=== PATIENT | female | born 1995 | race African-American/Black ===

== ENCOUNTER 2019-05-06 08:50 | Observation (INO) ==
[2019-05-06 09:43] LABS: Basophils # 0.1 K/mcL (0.0-0.2); Basophils % 0.9 %; Eosinophils # 0.1 K/mcL (0.0-0.6); Eosinophils % 1.2 %; Hematocrit 43.6 % (35.3-44.9); Hemoglobin 14.6 g/dL (11.5-15.4); Immature Granulocytes % 0.9 % (0-4); Immature Platelets 0.7 % (1.1-6.1); Lymphocytes # 2.1 K/mcL (0.6-4.6); Lymphocytes % 22.5 %; Mean Corpuscular HGB Conc 33.5 g/dL (31.6-35.5); Mean Corpuscular Hemoglobin 27.8 pg (28.0-33.3); Mean Corpuscular Volume 82.9 fL (83.0-100.0); Mean Platelet Volume 8.3 fL (9.4-12.4); Monocytes # 0.4 K/mcL (0.0-1.3); Monocytes % 4.2 %; Neutrophils # 6.6 K/mcL (1.6-8.9); Platelet Count 317 K/mcL (140-400); Red Blood Count 5.26 M/mcL (3.82-4.97); Red Cell Distribution Width 14.3 % (11.5-14.5); Segmented Neutrophils % 70.3 %; White Blood Count 9.4 K/mcL (4.3-11.1)
[2019-05-06 09:54] LABS: Acetaminophen < 10 mcg/mL (10-20); Alanine Aminotransferase 31 Units/L (7-52); Albumin 4.7 g/dL (3.5-5.7); Albumin/Globulin Ratio 1.4 (1.1-2.2); Alkaline Phosphatase 62 Units/L (34-104); Aspartate Amino Transferase 23 Units/L (13-39); BUN/Creatinine Ratio 22 (6-26); Bilirubin,Direct 0.1 mg/dL (0.0-0.2); Bilirubin,Indirect 0.2 mg/dL (0.0-1.0); Bilirubin,Total 0.3 mg/dL (0.3-1.0); Blood Urea Nitrogen 17 mg/dL (6-20); Calcium 9.8 mg/dL (8.6-10.3); Carbon Dioxide 19 mEq/L (23-29); Chloride 107 mEq/L (98-107); Chol/HDL Ratio 3.5 (0-4.9); Cholesterol 178 mg/dL (< 200); Ethanol < 10 mg/dL (Less than 10); Globulin 3.3 g/dL (2.4-3.5); Glucose 100 mg/dL (70-105); HDL Cholesterol 51 mg/dL (40-59); LDL Cholesterol,Calculated 114 mg/dL (0-99); Osmolality,Calculated 288 (280-300); Potassium 3.8 mEq/L (3.5-5.1); Salicylate < 2.5 mg/dL (15.0-30.0); Sodium 138 mEq/L (136-145); Triglycerides 67 mg/dL (< 150); eGFR For African Americans > 60 (> 60); eGFR For Non-African Americans > 60 (> 60)
[2019-05-06 10:07] LABS: Bilirubin,Urine Negative (Negative); Blood,Urine Negative (Negative); Clarity,Urine Clear (Clear); Color,Urine Yellow (Yellow); Glucose,Urine (UA) Normal (Normal); Ketones,Urine Negative (Negative); Leukocyte Esterase,Urine Negative (Negative); Nitrite,Urine Negative (Negative); Protein,Urine Negative (Neg-Trace); Specific Gravity,Urine 1.025 (1.010-1.025); Urobilinogen,Urine Normal (Normal)
[2019-05-06 10:27] LABS: Amphetamine Screen,Urine Negative ng/mL (Cutoff=1000); Barbiturate Screen,Urine Negative ng/mL (Cutoff=200); Benzodiazepines Screen,Urine Negative ng/mL (Cutoff=200); Cannabinoid Screen,Urine Negative ng/mL (Cutoff = 50); Cocaine Screen,Urine Negative ng/mL (Cutoff= 300); Opiate Screen,Urine Negative ng/mL (Cutoff=300); Phencyclidine Screen,Urine Negative ng/mL (Cutoff=25)
[2019-05-06 10:34] LABS: Estimated Average Glucose 128 mg/dl
[2019-05-06] MEDS ORDERED: Acetaminophen 325 MG TABLET PO PRN (14:21)
[2019-05-06] MEDS ORDERED: MOM Conc 10 ML UD.LIQ PO PRN (14:21)
[2019-05-06] MEDS ORDERED: *HR* LORazepam 1 MG TABLET PO PRN (14:21)
[2019-05-06] MEDS ORDERED: Mag Hydrox/Al Hydrox/Simeth 30 ML UDC PO PRN (14:21)
[2019-05-06] MEDS ORDERED: Haloperidol Lactate 5 MG/ML VIAL IM PRN (14:21)
[2019-05-06] MEDS ORDERED: hydrOXYzine pamoate 25 MG CAPSULE PO PRN (14:21)
[2019-05-06] MEDS ORDERED: *HR* LORazepam 2 MG/ML VIAL IM PRN (14:21)
[2019-05-06] MEDS ORDERED: traZODone 50 MG TABLET PO PRN ×2 (14:21→19:13)
[2019-05-07 07:58] VITALS: BP 120/77
[2019-05-07] MEDS ORDERED: ARIPiprazole 10 MG TABLET PO SCH (09:00)
[2019-05-07] MEDS ORDERED: Cholecalciferol (D-3) 1,000 UNIT (25MCG) TABLET PO SCH (09:00)
[2019-05-07] MEDS ORDERED: MEDROXYPROGESTERONE ACETATE 150 MG IM SCH (09:15)
[2019-05-07] MEDS ORDERED: ARIPIPRAZOLE LAUROXIL 1064 MG IM SCH (09:15)
[2019-05-07] MEDS ORDERED: FLU Vac QV 19-20 (6Month+)/PF 0.5 ML SYRINGE IM ONE (09:38)
== END 2019-05-07 11:35 | disposition home or self-care (01) ==
LOC: 1ANU 08:50 → EMEROOARM 08:50 → 1ANU 14:20
PROVIDERS: ADMIT Psychiatry & Neurology Psychiatry; ATTEND Psychiatry & Neurology Psychiatry

== ENCOUNTER 2020-04-18 15:33 | Inpatient (IN) ==
[2020-04-18 15:53] LABS: Bilirubin,Urine Small (Negative); Blood,Urine Negative (Negative); Clarity,Urine Turbid (Clear); Color,Urine Yellow (Yellow); Glucose,Urine (UA) Normal (Normal); Ketones,Urine Trace mg/dL (Negative); Leukocyte Esterase,Urine Negative (Negative); Nitrite,Urine Positive (Negative); PH,Urine 5.5 pH Units (5.0-8.0); Protein,Urine 30 mg/dL (Neg-Trace); Specific Gravity,Urine >= 1.030 (1.010-1.025); Urobilinogen,Urine Normal (Normal)
[2020-04-18 16:02] LABS: Amphetamine Screen,Urine Negative ng/mL (Cutoff=1000); Barbiturate Screen,Urine Negative ng/mL (Cutoff=200); Benzodiazepines Screen,Urine Negative ng/mL (Cutoff=200); Cannabinoid Screen,Urine Negative ng/mL (Cutoff = 50); Cocaine Screen,Urine Negative ng/mL (Cutoff= 300); Opiate Screen,Urine Negative ng/mL (Cutoff=300); Phencyclidine Screen,Urine Negative ng/mL (Cutoff=25)
[2020-04-18 16:19] LABS: Bacteria,Urine Few per hpf (None-Few); RBC,Urine 0-3 per hpf (0-3); Squamous Epithelial Cell,Urine Moderate per hpf (None-Few); WBC,Urine 0-3 per hpf (0-3)
[2020-04-18 16:24] LABS: Basophils # 0.1 K/mcL (0.0-0.2); Basophils % 0.4 %; Eosinophils # 0.1 K/mcL (0.0-0.6); Eosinophils % 0.6 %; Hematocrit 44.6 % (35.3-44.9); Hemoglobin 14.2 g/dL (11.5-15.4); Immature Granulocytes % 0.7 % (0-4); Lymphocytes # 2.7 K/mcL (0.6-4.6); Lymphocytes % 22.7 %; Mean Corpuscular HGB Conc 31.8 g/dL (31.6-35.5); Mean Corpuscular Hemoglobin 27.3 pg (28.0-33.3); Mean Corpuscular Volume 85.6 fL (83.0-100.0); Monocytes # 0.8 K/mcL (0.0-1.3); Monocytes % 6.5 %; Neutrophils # 8.1 K/mcL (1.6-8.9); Platelet Count 403 K/mcL (140-400); Red Blood Count 5.21 M/mcL (3.82-4.97); Red Cell Distribution Width 15.1 % (11.5-14.5); Segmented Neutrophils % 69.1 %; White Blood Count 11.7 K/mcL (4.3-11.1)
[2020-04-18 16:38] LABS: Acetaminophen < 10 mcg/mL (10-20); BUN/Creatinine Ratio 9 (6-26); Blood Urea Nitrogen 8 mg/dL (6-20); Calcium 10.1 mg/dL (8.6-10.3); Carbon Dioxide 25 mEq/L (23-29); Chloride 105 mEq/L (98-107); Chol/HDL Ratio 3.9 (0-4.9); Cholesterol 177 mg/dL (< 200); Ethanol < 10 mg/dL (Less than 10); Glucose 81 mg/dL (70-105); HDL Cholesterol 45 mg/dL (40-59); LDL Cholesterol,Calculated 115 mg/dL (< 100); Osmolality,Calculated 283 (280-300); Potassium 3.8 mEq/L (3.5-5.1); Salicylate < 2.5 mg/dL (15.0-30.0); Sodium 138 mEq/L (136-145); Triglycerides 86 mg/dL (< 150); eGFR For African Americans > 60 (> 60); eGFR For Non-African Americans > 60 (> 60)
[2020-04-18] MEDS ORDERED: Nitrofurantoin (BID) 100 MG CAPSULE PO STA (17:11)
[2020-04-18 17:12] LABS: Estimated Average Glucose 120 mg/dl
[2020-04-18] MEDS ORDERED: Haloperidol Lactate 5 MG/ML VIAL IM PRN (18:38)
[2020-04-18] MEDS ORDERED: MOM Conc 10 ML UD.LIQ PO PRN (18:38)
[2020-04-18] MEDS ORDERED: Acetaminophen 325 MG TABLET PO PRN (18:38)
[2020-04-18] MEDS ORDERED: hydrOXYzine pamoate 25 MG CAPSULE PO PRN (18:38)
[2020-04-18] MEDS ORDERED: Mag Hydrox/Al Hydrox/Simeth 30 ML UDC PO PRN (18:38)
[2020-04-18] MEDS ORDERED: *HR* LORazepam 1 MG TABLET PO PRN (18:38)
[2020-04-18] MEDS ORDERED: *HR* LORazepam 2 MG/ML VIAL IM PRN (18:38)
[2020-04-18] MEDS ORDERED: haloperidoL 5 MG TABLET PO PRN (18:38)
[2020-04-18] MEDS: QUEtiapine Fumarate 25 MG TABLET PO PRN (22:02)
[2020-04-18] MEDS: ARIPiprazole 10 MG TABLET PO SCH (22:02)
[2020-04-19] MEDS: ARIPiprazole 10 MG TABLET PO SCH (08:38)
[2020-04-19] MEDS: *HR* Metformin 500 MG TABLET PO SCH (08:39)
[2020-04-19] MEDS: QUEtiapine Fumarate 25 MG TABLET PO PRN (21:36)
[2020-04-20] MEDS: *HR* Metformin 500 MG TABLET PO SCH (09:55)
[2020-04-20] MEDS: ARIPiprazole 10 MG TABLET PO SCH (10:16)
[2020-04-20] MEDS ORDERED: Patient Taking Own Medication 1 EACH PO SCH (10:30)
[2020-04-20] MEDS ORDERED: ARISTADA PO SCH (11:00)
[2020-04-20] MEDS ORDERED: ARISTADA IM SCH (11:00)
[2020-04-21] MEDS: *HR* Metformin 500 MG TABLET PO SCH (09:13)
[2020-04-21] MEDS: ARIPiprazole 10 MG TABLET PO SCH (09:14)
[2020-04-22] MEDS: ARIPiprazole 10 MG TABLET PO SCH (08:44)
[2020-04-22] MEDS: *HR* Metformin 500 MG TABLET PO SCH (08:44)
[2020-04-22 09:14] VITALS: BP 115/80
== END 2020-04-22 09:00 | disposition home or self-care (01) | DRG 885 ==
LOC: EMEROOARM 15:33 → 1ANU 18:32
PROVIDERS: ADMIT Psychiatry & Neurology Forensic Psychiatry; ATTEND Psychiatry & Neurology Forensic Psychiatry

== ENCOUNTER 2021-01-24 20:20 | Observation (INO) ==
[2021-01-24 21:39] LABS: Bilirubin,Urine Negative (Negative); Blood,Urine Negative (Negative); Clarity,Urine Clear (Clear); Color,Urine Colorless (Yellow); Glucose,Urine (UA) Normal (Normal); Ketones,Urine Negative (Negative); Leukocyte Esterase,Urine Negative (Negative); Nitrite,Urine Negative (Negative); PH,Urine 6.5 pH Units (5.0-8.0); Protein,Urine Negative (Neg-Trace); Specific Gravity,Urine 1.015 (1.010-1.025); Urobilinogen,Urine Normal (Normal)
[2021-01-24 21:47] LABS: Amphetamine Screen,Urine Negative ng/mL (Cutoff=1000); Barbiturate Screen,Urine Negative ng/mL (Cutoff=200); Benzodiazepines Screen,Urine Negative ng/mL (Cutoff=200); Cannabinoid Screen,Urine Negative ng/mL (Cutoff = 50); Cocaine Screen,Urine Negative ng/mL (Cutoff= 300); Opiate Screen,Urine Negative ng/mL (Cutoff=300); Phencyclidine Screen,Urine Negative ng/mL (Cutoff=25)
[2021-01-24 22:02] LABS: Basophils # 0.1 K/mcL (0.0-0.2); Basophils % 0.4 %; Eosinophils # 0.2 K/mcL (0.0-0.6); Eosinophils % 1.4 %; Hematocrit 41.5 % (35.3-44.9); Hemoglobin 13.3 g/dL (11.5-15.4); Immature Granulocytes % 0.5 % (0-4); Lymphocytes # 3.4 K/mcL (0.6-4.6); Lymphocytes % 26.1 %; Mean Corpuscular Volume 84.2 fL (83.0-100.0); Mean Platelet Volume 8.1 fL (9.4-12.4); Monocytes # 0.9 K/mcL (0.0-1.3); Monocytes % 6.6 %; Neutrophils # 8.5 K/mcL (1.6-8.9); Platelet Count 374 K/mcL (140-400); Red Blood Count 4.93 M/mcL (3.82-4.97); Red Cell Distribution Width 14.1 % (11.5-14.5); White Blood Count 13.1 K/mcL (4.3-11.1)
[2021-01-24 22:12] LABS: Acetaminophen < 10 mcg/mL (10-20); Alanine Aminotransferase 23 Units/L (7-52); Albumin 4.3 g/dL (3.5-5.7); Albumin/Globulin Ratio 1.3 (1.1-2.2); Alkaline Phosphatase 75 Units/L (34-104); Aspartate Amino Transferase 19 Units/L (13-39); BUN/Creatinine Ratio 16 (6-26); Bilirubin,Indirect 0.2 mg/dL (0.0-1.0); Bilirubin,Total 0.2 mg/dL (0.3-1.0); Blood Urea Nitrogen 12 mg/dL (6-20); Calcium 9.9 mg/dL (8.6-10.3); Carbon Dioxide 23 mEq/L (23-29); Chloride 104 mEq/L (98-107); Ethanol < 10 mg/dL (Less than 10); Globulin 3.4 g/dL (2.4-3.5); Glucose 85 mg/dL (70-105); Osmolality,Calculated 279 (280-300); Potassium 3.9 mEq/L (3.5-5.1); Salicylate < 2.5 mg/dL (15.0-30.0); Sodium 135 mEq/L (136-145); Total Protein 7.7 g/dL (6.4-8.9); eGFR For African Americans > 60 (> 60); eGFR For Non-African Americans > 60 (> 60)
[2021-01-25 01:40] LABS: Adenovirus Not Detected (Not Detect); Bordetella Pertussis Not Detected (Not Detect); Chlamydophila pneumoniae Not Detected (Not Detect); Coronavirus 229E Not Detected (Not Detect); Coronavirus HKU1 Not Detected (Not Detect); Coronavirus NL63 Not Detected (Not Detect); Coronavirus OC43 Not Detected (Not Detect); Human Metapneumovirus Not Detected (Not Detect); Human Rhinovirus/Enterovirus Not Detected (Not Detect); Influenza A Subtype 2009 H1 Not Detected (Not Detect); Influenza B Not Detected (Not Detect); Mycoplasma pneumoniae Not Detected (Not Detect); Parainfluenza Virus 1 Not Detected (Not Detect); Parainfluenza Virus 2 Not Detected (Not Detect); Parainfluenza Virus 3 Not Detected (Not Detect); Parainfluenza Virus 4 Not Detected (Not Detect); Respiratory Syncytial Virus Not Detected (Not Detect); SARS-CoV-2 Not Detected (Not Detect)
[2021-01-25] MEDS ORDERED: hydrOXYzine pamoate 25 MG CAPSULE PO PRN ×3 (01:52→13:21)
[2021-01-25] MEDS ORDERED: QUEtiapine Fumarate 25 MG TABLET PO PRN (01:52)
[2021-01-25] MEDS ORDERED: Haloperidol Lactate 5 MG/ML VIAL IM PRN (01:52)
[2021-01-25] MEDS ORDERED: Acetaminophen 325 MG TABLET PO PRN (01:52)
[2021-01-25] MEDS ORDERED: *HR* LORazepam 1 MG TABLET PO PRN (01:52)
[2021-01-25] MEDS ORDERED: haloperidoL 5 MG TABLET PO PRN (01:52)
[2021-01-25] MEDS ORDERED: *HR* LORazepam 2 MG/ML VIAL IM PRN (01:52)
[2021-01-25 09:03] VITALS: BP 97/66; PULSE 104; TEMP 98.1; O2SAT 98
[2021-01-25] MEDS ORDERED: MOM Conc 10 ML UD.LIQ PO PRN (11:25)
[2021-01-25] MEDS ORDERED: traZODone 50 MG TABLET PO PRN (11:25)
[2021-01-25] MEDS ORDERED: Mag Hydrox/Al Hydrox/Simeth 30 ML UDC PO PRN (11:25)
[2021-01-25] MEDS ORDERED: ARIPiprazole 10 MG TABLET PO SCH (11:30)
[2021-01-25] MEDS ORDERED: FluPHENAZine 10 MG TABLET PO SCH (21:00)
[2021-01-25] MEDS ORDERED: QUEtiapine Fumarate 25 MG TABLET PO SCH (21:00)
== END 2021-01-25 18:30 | disposition home or self-care (01) ==
LOC: EMEROOARM 20:20 → 1ANU 01-25 01:46 → INTOOBSV 01-25 01:46 → 1ANU 01-25 02:29 → UNDODISOB 01-25 18:30
PROVIDERS: ADMIT Psychiatry & Neurology Psychiatry; ATTEND Psychiatry & Neurology Psychiatry

== ENCOUNTER 2021-12-08 07:22 | Inpatient (IN) ==
[2021-12-08 08:16] LABS: Basophils # 0.1 K/mcL (0.0-0.2); Basophils % 0.5 %; Eosinophils # 0.2 K/mcL (0.0-0.6); Eosinophils % 2.1 %; Hematocrit 40.8 % (35.3-44.9); Hemoglobin 13.5 g/dL (11.5-15.4); Immature Granulocytes % 0.3 % (0-4); Lymphocytes # 2.9 K/mcL (0.6-4.6); Lymphocytes % 27.1 %; Mean Corpuscular HGB Conc 33.1 g/dL (31.6-35.5); Mean Corpuscular Hemoglobin 27.4 pg (28.0-33.3); Mean Corpuscular Volume 82.9 fL (83.0-100.0); Mean Platelet Volume 8.3 fL (9.4-12.4); Monocytes # 0.7 K/mcL (0.0-1.3); Monocytes % 6.2 %; Neutrophils # 6.7 K/mcL (1.6-8.9); Platelet Count 382 K/mcL (140-400); Red Blood Count 4.92 M/mcL (3.82-4.97); Red Cell Distribution Width 15.8 % (11.5-14.5); Segmented Neutrophils % 63.8 %; White Blood Count 10.5 K/mcL (4.3-11.1)
[2021-12-08 08:21] LABS: Acetaminophen < 10 mcg/mL (10-20); Alanine Aminotransferase 28 Units/L (7-52); Albumin 4.2 g/dL (3.5-5.7); Albumin/Globulin Ratio 1.4 (1.1-2.2); Alkaline Phosphatase 74 Units/L (34-104); Aspartate Amino Transferase 24 Units/L (13-39); BUN/Creatinine Ratio 10 (6-26); Bilirubin,Indirect 0.4 mg/dL (0.0-1.0); Bilirubin,Total 0.4 mg/dL (0.3-1.0); Blood Urea Nitrogen 8 mg/dL (6-20); Calcium 9.6 mg/dL (8.6-10.3); Carbon Dioxide 23 mEq/L (23-29); Chloride 108 mEq/L (98-107); Chol/HDL Ratio 3.3 (0-4.9); Cholesterol 160 mg/dL (< 200); Ethanol < 10 mg/dL (Less than 10); Glucose 83 mg/dL (70-105); HDL Cholesterol 49 mg/dL (40-59); LDL Cholesterol,Calculated 98 mg/dL (< 100); Osmolality,Calculated 281 (280-300); Salicylate < 2.5 mg/dL (15.0-30.0); Sodium 137 mEq/L (136-145); Total Protein 7.2 g/dL (6.4-8.9); Triglycerides 67 mg/dL (< 150); eGFR For African Americans > 60 (> 60); eGFR For Non-African Americans > 60 (> 60)
[2021-12-08 08:46] LABS: Bilirubin,Urine Negative (Negative); Blood,Urine Negative (Negative); Clarity,Urine Clear (Clear); Color,Urine Light-Yellow (Yellow); Glucose,Urine (UA) Normal (Normal); Ketones,Urine Negative (Negative); Leukocyte Esterase,Urine Negative (Negative); Nitrite,Urine Negative (Negative); Protein,Urine Negative (Neg-Trace); Specific Gravity,Urine 1.023 (1.010-1.025); Urobilinogen,Urine Normal (Normal)
[2021-12-08 08:52] LABS: Amphetamine Screen,Urine Negative ng/mL (Cutoff=1000); Barbiturate Screen,Urine Negative ng/mL (Cutoff=200); Benzodiazepines Screen,Urine Negative ng/mL (Cutoff=200); Cannabinoid Screen,Urine Negative ng/mL (Cutoff = 50); Cocaine Screen,Urine Negative ng/mL (Cutoff= 300); Opiate Screen,Urine Negative ng/mL (Cutoff=300); Phencyclidine Screen,Urine Negative ng/mL (Cutoff=25)
[2021-12-08 10:10] LABS: Estimated Average Glucose 111 mg/dl; Hemoglobin A1C 5.5 %
[2021-12-08 13:15] LABS: Influenza A PCR Negative (Negative); Influenza B PCR Negative (Negative); Resp. Syncytial Virus PCR Negative (Negative)
[2021-12-08 13:26] LABS: SARS-CoV-2 by PCR (In House) Negative (Negative)
[2021-12-08] MEDS ORDERED: haloperidoL 5 MG TABLET PO PRN (13:52)
[2021-12-08] MEDS ORDERED: Haloperidol Lactate 5 MG/ML VIAL IM PRN (13:52)
[2021-12-08] MEDS ORDERED: *HR* LORazepam 2 MG/ML VIAL IM PRN (13:52)
[2021-12-08] MEDS ORDERED: *HR* LORazepam 1 MG TABLET PO PRN (13:52)
[2021-12-08] MEDS: hydrOXYzine pamoate 25 MG CAPSULE PO PRN ×2 (17:43→23:39)
[2021-12-08] MEDS: Ibuprofen 400 MG TABLET PO PRN (18:44)
[2021-12-08] MEDS: FANAPT 8 MG PO SCH (20:46)
[2021-12-08] MEDS: traZODone 50 MG TABLET PO PRN (23:38)
[2021-12-09] MEDS ORDERED: *HR* Metformin 500 MG TABLET PO SCH (08:00)
[2021-12-09] MEDS: FANAPT 8 MG PO SCH ×2 (09:24→22:44)
[2021-12-09] MEDS ORDERED: hydrOXYzine pamoate 25 MG CAPSULE PO PRN (09:52)
[2021-12-09] MEDS ORDERED: FANAPT 8 MG PO SCH (09:59)
[2021-12-09] MEDS: hydrOXYzine pamoate 25 MG CAPSULE PO PRN (10:21)
[2021-12-09] MEDS: *HR* Metformin 850 MG TABLET PO SCH (11:59)
[2021-12-09] MEDS: Ibuprofen 400 MG TABLET PO PRN (18:09)
[2021-12-09] MEDS ORDERED: traZODone 50 MG TABLET PO SCH (21:00)
[2021-12-09 21:06] VITALS: TEMP 97.9
[2021-12-09] MEDS: traZODone 50 MG TABLET PO PRN (23:47)
[2021-12-10] MEDS: hydrOXYzine pamoate 25 MG CAPSULE PO PRN (03:38)
[2021-12-10] MEDS: FANAPT 8 MG PO SCH (09:41)
[2021-12-10] MEDS: *HR* Metformin 850 MG TABLET PO SCH (09:41)
[2021-12-10 10:16] VITALS: BP 108/63; PULSE 93; O2SAT 96
== END 2021-12-10 12:10 | disposition home or self-care (01) | DRG 885 ==
LOC: EMEROOARM 07:22 → 1ANU 14:00
PROVIDERS: ADMIT Psychiatry & Neurology Psychiatry; ATTEND Psychiatry & Neurology Psychiatry

== ENCOUNTER 2022-01-13 18:20 | Observation (INO) ==
[2022-01-13 19:11] LABS: Bilirubin,Urine Negative (Negative); Blood,Urine Negative (Negative); Clarity,Urine Clear (Clear); Color,Urine Yellow (Yellow); Glucose,Urine (UA) Normal (Normal); Ketones,Urine 40 mg/dL (Negative); Leukocyte Esterase,Urine Negative (Negative); Nitrite,Urine Negative (Negative); Protein,Urine 100 mg/dL (Neg-Trace); Specific Gravity,Urine >= 1.030 (1.010-1.025); Urobilinogen,Urine Normal (Normal)
[2022-01-13 19:12] LABS: Squamous Epithelial Cell,Urine Many per hpf (None-Few)
[2022-01-13 19:13] LABS: Bacteria,Urine Few per hpf (None-Few); Hyaline Casts,Urine None Seen per lpf (None Seen); Mucus,Urine Few per lpf (None-Few)
[2022-01-13 19:20] LABS: Basophils # 0.1 K/mcL (0.0-0.2); Basophils % 0.4 %; Eosinophils % 0.3 %; Hematocrit 40.9 % (35.3-44.9); Hemoglobin 13.6 g/dL (11.5-15.4); Immature Granulocytes % 0.4 % (0-4); Lymphocytes # 3.3 K/mcL (0.6-4.6); Lymphocytes % 23.1 %; Mean Corpuscular HGB Conc 33.3 g/dL (31.6-35.5); Mean Corpuscular Hemoglobin 27.1 pg (28.0-33.3); Mean Corpuscular Volume 81.6 fL (83.0-100.0); Mean Platelet Volume 8.1 fL (9.4-12.4); Monocytes # 0.9 K/mcL (0.0-1.3); Monocytes % 6.6 %; Neutrophils # 9.8 K/mcL (1.6-8.9); Platelet Count 390 K/mcL (140-400); Red Blood Count 5.01 M/mcL (3.82-4.97); Red Cell Distribution Width 15.1 % (11.5-14.5); Segmented Neutrophils % 69.2 %; White Blood Count 14.1 K/mcL (4.3-11.1)
[2022-01-13 19:31] LABS: Amphetamine Screen,Urine Negative ng/mL (Cutoff=1000); Barbiturate Screen,Urine Negative ng/mL (Cutoff=200); Benzodiazepines Screen,Urine Negative ng/mL (Cutoff=200); Cannabinoid Screen,Urine Negative ng/mL (Cutoff = 50); Cocaine Screen,Urine Negative ng/mL (Cutoff= 300); Opiate Screen,Urine Negative ng/mL (Cutoff=300); Phencyclidine Screen,Urine Negative ng/mL (Cutoff=25)
[2022-01-13 19:35] LABS: Acetaminophen < 10 mcg/mL (10-20); BUN/Creatinine Ratio 8 (6-26); Blood Urea Nitrogen 7 mg/dL (6-20); Calcium 9.5 mg/dL (8.6-10.3); Carbon Dioxide 22 mEq/L (23-29); Chloride 106 mEq/L (98-107); Ethanol < 10 mg/dL (Less than 10); Glucose 97 mg/dL (70-105); Osmolality,Calculated 280 (280-300); Potassium 3.6 mEq/L (3.5-5.1); Salicylate < 2.5 mg/dL (15.0-30.0); Sodium 136 mEq/L (136-145); eGFR For African Americans > 60 (> 60); eGFR For Non-African Americans > 60 (> 60)
[2022-01-14 00:58] LABS: Influenza A PCR Negative (Negative); Influenza B PCR Negative (Negative); Resp. Syncytial Virus PCR Negative (Negative)
[2022-01-14 01:01] LABS: SARS-CoV-2 by PCR (In House) Negative (Negative)
[2022-01-14] MEDS ORDERED: haloperidoL 5 MG TABLET PO PRN (13:59)
[2022-01-14] MEDS ORDERED: *HR* LORazepam 1 MG TABLET PO PRN (13:59)
[2022-01-14] MEDS ORDERED: Ibuprofen 400 MG TABLET PO PRN (13:59)
[2022-01-14] MEDS ORDERED: Acetaminophen 325 MG TABLET PO PRN (13:59)
[2022-01-14] MEDS ORDERED: QUEtiapine Fumarate 25 MG TABLET PO PRN (13:59)
[2022-01-14] MEDS ORDERED: Haloperidol Lactate 5 MG/ML VIAL IM PRN (13:59)
[2022-01-14] MEDS ORDERED: *HR* LORazepam 2 MG/ML VIAL IM PRN (13:59)
[2022-01-14] MEDS ORDERED: hydrOXYzine pamoate 25 MG CAPSULE PO PRN (13:59)
[2022-01-14] MEDS ORDERED: MOM Conc 10 ML UD.LIQ PO PRN (13:59)
[2022-01-14] MEDS ORDERED: Mag Hydrox/Al Hydrox/Simeth 30 ML UDC PO PRN (13:59)
[2022-01-14] MEDS ORDERED: HYDROXYZINE PAMOATE 25 MG PO PRN (15:52)
[2022-01-14] MEDS: Nicotine 7 MG PATCH.TD24 TD SCH (16:42)
[2022-01-14] MEDS ORDERED: traZODone 50 MG TABLET PO SCH (21:00)
[2022-01-14] MEDS: ILOPERIDONE 12 MG PO SCH (22:16)
[2022-01-15] MEDS ORDERED: *HR* Metformin 850 MG TABLET PO SCH (09:00)
[2022-01-15 09:16] VITALS: BP 103/78; PULSE 83; TEMP 97.8; O2SAT 99
[2022-01-15] MEDS: Nicotine 7 MG PATCH.TD24 TD SCH (09:40)
[2022-01-15] MEDS: ILOPERIDONE 12 MG PO SCH (09:40)
== END 2022-01-15 15:30 | disposition home or self-care (01) ==
LOC: 1ANU 18:20 → EMEROOARM 18:20 → 1ANU 01-14 14:21
PROVIDERS: ADMIT Psychiatry & Neurology Forensic Psychiatry; ATTEND Psychiatry & Neurology Forensic Psychiatry